=== PATIENT | female | born 1970 | race Caucasian/White ===

== ENCOUNTER 2022-07-07 09:07 | Outpatient (CLI) | payer OTHER, SELFPAY | END 2022-07-07 09:08 | disposition home or self-care (01) | PROVIDERS: PCP Family Medicine; Visit Provider Family Medicine | DX: Z00.00 Encounter for general adult medical examination without abnormal findings (principal); E04.1 Nontoxic single thyroid nodule; E03.9 Hypothyroidism, unspecified; R76.8 Other specified abnormal immunological findings in serum; M13.0 Polyarthritis, unspecified; Z13.6 Encounter for screening for cardiovascular disorders; Z11.59 Encounter for screening for other viral diseases | CPT/HCPCS: 80053; 80061; 84443; 86039; 86200; 86431; 86803 ==

== ENCOUNTER 2023-11-15 07:33 | Outpatient (CLI) | payer OTHER, SELFPAY | END 2023-11-15 07:34 | disposition home or self-care (01) | PROVIDERS: PCP Family Medicine; Visit Provider Family Medicine | DX: Z00.00 Encounter for general adult medical examination without abnormal findings (principal); E03.8 Other specified hypothyroidism; E04.1 Nontoxic single thyroid nodule; E06.3 Autoimmune thyroiditis; N95.9 Unspecified menopausal and perimenopausal disorder; Z13.6 Encounter for screening for cardiovascular disorders; Z13.1 Encounter for screening for diabetes mellitus | CPT/HCPCS: 80053; 80061; 83001; 84443 ==

== ENCOUNTER 2024-03-29 08:57 | Outpatient (CLI) | payer BC, SELFPAY ==
--- NOTE | 2024-03-29 09:15 | CRLHL7_ITS ---
For Patients: As a result of the Century Cures Act, medical imaging exams and procedure reports are released immediately into your electronic medical record. You may view this report before your referring provider. If you have questions, please contact your health care provider. BILATERAL SCREENING MAMMOGRAM WITH COMPUTER-AIDED DETECTION AND TOMOSYNTHESIS TECHNIQUE: CC and MLO views were obtained. These mammographic images have been obtained using full-field digital technique. These mammographic images were interpreted with the benefit of computer-aided detection. Breast Tomosynthesis was used in this interpretation. COMPARISON FILM: 07/25/21, 08/05/17, 05/24/13. FINDINGS: The breasts are almost entirely fatty. IMPRESSION: There is no radiographic evidence for malignancy. ASSESSMENT: BI-RADS Category 1: Negative RECOMMENDATION: Routine screening mammogram in 1 year. A lay language report of this examination will be provided to the patient. Agustin Francois M.D. Diagnostic Radiologist [email or web address] SP/Dictated by: Agustin Francois MD @ 03/29/2024 12:49:00 PM (Electronically Signed)
== END 2024-03-29 08:58 | disposition home or self-care (01) ==
PROVIDERS: PCP Family Medicine; Visit Provider Family Medicine
DX: Z12.31 Encounter for screening mammogram for malignant neoplasm of breast (principal)
CPT/HCPCS: 77063; 77067